=== PATIENT | female | born 1960 | race Caucasian/White ===

== ENCOUNTER 2017-10-23 18:36 | Emergency (ER) | payer SELFPAY ==
[~2017-10-23] VITALS: Ht 154.9 cm; Wt 117.0 kg
[2017-10-23 19:28] VITALS: BP 161/75
--- NOTE | 2017-10-23 19:45 | NUR ---
TO ER BED 3
--- NOTE | 2017-10-23 19:50 | NUR ---
PT IS A 56 Y/O F WHO PRESENTED TO ED S/P FALL FROM SIDEWALK. PT STATES, "THE SIDEWALK WAS UNEVEN AND I FELL." PT C/O PAIN IN L ANKLE, KNEE AND ARM. PT STATES PAIN IS 9/10 ACHING AND THE PAIN IS PROVOKED FROM MOVING. NO OBVIOUS DEFORMITY NOTED. PT DENIES ANY LOSS OF LOC, N/V. PT STATES PMH INCLUDES DM, HTN AND CALCIUM DEPOSITE IN L KNEE. NKA TO MEDICATIONS. PT AAOX4 RR EVEN/UNLABORED. LUNG SOUNDS CLEAR. PT REPOSITIONED FOR COMFORT. BED IN LOWEST POSITION. ER MD DR. DAI MADE AWARE. WILL CONTINUE TO MONITOR
[2017-10-23] MEDS ORDERED: IBUPROFEN 600 MG TAB PO ONE (19:55)
--- NOTE | 2017-10-23 20:30 | NUR ---
PT RESTING COMFORTABLY IN BED WITH NO S/S OF DISTRESS NOTED. VSS. DAUGHTER AT BEDSIDE
[2017-10-23 21:00] VITALS: BP 150/70
--- NOTE | 2017-10-23 21:00 | NUR ---
Patient discharged with v/s stable BY DR. DAI. Written and verbal after care instructions given and explained BY DR. DAI. Patient alert, oriented and verbalized understanding of instructions. Ambulatory with steady gait. All questions addressed prior to discharge BY . ID band removed. Patient advised to follow up with PMD BY DR. DAI. Rx of given NAPTODYN 500 MG. Patient educated on indication of medication including possible reaction and side effects BY DR. DAI. Opportunity to ask questions provided and answered.
== END 2017-10-23 21:00 | disposition home or self-care (01) ==
LOC: MED 19:36
DX: S80.02XA Contusion of left knee, initial encounter (principal); E11.9 Type 2 diabetes mellitus without complications; I10 Essential (primary) hypertension; W19.XXXA Unspecified fall, initial encounter; Y93.89 Activity, other specified; Y92.89 Other specified places as the place of occurrence of the external cause; Y99.8 Other external cause status
CPT/HCPCS: 73562; 99284; Q0092

== ENCOUNTER 2020-08-05 18:38 | Emergency (ER) | payer OTHER ==
[~2020-08-05] VITALS: Ht 162.6 cm; Wt 115.2 kg
[2020-08-05 19:26] VITALS: BP 118/83
[2020-08-05 21:05] VITALS: BP 122/82
--- NOTE | 2020-08-05 21:05 | NUR ---
NOVAL PCR ORAL SWAB COLLECTED AND GIVEN TO SKIN FORMER.
--- NOTE | 2020-08-05 21:05 | NUR ---
Patient discharged with v/s stable. Written and verbal after care instructions given and explained. Patient alert, oriented and verbalized understanding of instructions. Ambulatory with steady gait. All questions addressed prior to discharge. ID band removed. Patient advised to follow up with PMD. Rx of CEPACOL, IBUPROFEN, PROMETAZINE given. Patient educated on indication of medication including possible reaction and side effects. Opportunity to ask questions provided and answered.
--- NOTE | 2020-08-07 09:27 | NUR ---
+ covid result received from lab. Copy given to Tabitha at infection control
== END 2020-08-05 21:05 | disposition home or self-care (01) ==
LOC: MED 18:38
DX: U07.1 COVID-19 (principal); B34.9 Viral infection, unspecified; E11.9 Type 2 diabetes mellitus without complications; I10 Essential (primary) hypertension; I51.89 Other ill-defined heart diseases
CPT/HCPCS: 99283; U0003

== ENCOUNTER 2020-08-14 09:32 | Emergency (ER) | payer OTHER ==
[~2020-08-14] VITALS: Ht 172.7 cm; Wt 99.8 kg
[2020-08-14 09:44] VITALS: BP 149/76
--- NOTE | 2020-08-14 12:09 | NUR ---
59 Y/O FEMALE TESTED + FOR COVID ON 08/04/20. PT IS EXPERIENCING SOB/COUGH AND PRESSURE ON HER CHEST, STATES SHE IS ALSO HAVING N/V. MILD RESP DISTRESS NOTED AT THIS TIME. WHEEZING HEARD IN BILAT LOBES UPON EXHALATION/INSPIRATION. VSS. PMH: HX PNEUMONIA, DM, HTN NKDA
[2020-08-14 13:10] LABS: BASOPHILS # (AUTO) 0.1 K/uL (0.00-0.22); BASOPHILS % (AUTO) 0.6 % (0.0-2.0); EOSINOPHILS # (AUTO) 0.1 K/uL (0-0.4); EOSINOPHILS % (AUTO) 1.3 % (0.0-4.0); HEMATOCRIT 42.3 % (36-48); HEMOGLOBIN 13.9 g/dL (12.0-16.0); LYMPHOCYTES # (AUTO) 1.9 K/uL (2.5-16.5); LYMPHOCYTES % (AUTO) 17.3 % (20.5-51.1); MEAN CORPUSCULAR HEMOGLOBIN 27 pg (27-31); MEAN CORPUSCULAR HGB CONC 33 g/dL (33-37); MONOCYTES % (AUTO) 8.8 % (1.7-9.3); NEUTROPHILS # (AUTO) 7.9 K/uL (1.8-7.7); PLATELET COUNT (AUTO) 392 K/uL (140-450); RED BLOOD CELL COUNT(AUTO) 5.09 MIL/uL (4.20-5.40)
--- NOTE | 2020-08-14 13:21 | NUR ---
LG (DAUGHTER): [phone] FELISHA (SON): [phone]
[2020-08-14 13:25] LABS: ALBUMIN 3.8 g/dL (3.4-5.0); ANION GAP 15.9 (8-16); CARBON DIOXIDE 25.2 mmol/L (21-32); CREATININE 1.1 mg/dL (0.6-1.3); POTASSIUM 4.1 mmol/L (3.5-5.1); TOTAL BILIRUBIN 0.4 mg/dL (0.0-1.0)
[2020-08-14 16:57] VITALS: BP 149/76
--- NOTE | 2020-08-14 16:57 | NUR ---
Patient discharged with v/s stable. Written and verbal after care instructions given and explained. Patient verbalized understanding. Ambulatory with steady gait. All questions addressed prior to discharge. Advised to follow up with PMD.
== END 2020-08-14 16:57 | disposition home or self-care (01) ==
LOC: MED 09:32
DX: U07.1 COVID-19 (principal); J12.89 Other viral pneumonia
CPT/HCPCS: 36415; 71045; 80053; 84484; 85025; 99285

== ENCOUNTER 2021-03-27 12:27 | Emergency (ER) | payer MEDICAID, OTHER ==
[~2021-03-27] VITALS: Ht 165.1 cm; Wt 114.8 kg
[2021-03-27 12:39] VITALS: BP 184/78
[2021-03-27] MEDS ORDERED: ONDANSETRON 4 MG/2 ML VIAL IVP ONE (13:00)
[2021-03-27] MEDS ORDERED: NACL 0.9% 1,000 ML IV SCH (13:00)
[2021-03-27] MEDS ORDERED: KETOROLAC 30 MG/ML VIAL IVP ONE (13:05)
[2021-03-27] MEDS ORDERED: IBUP-2213 PO (13:13)
[2021-03-27] MEDS ORDERED: ONDA8TAB87 PO (13:13)
[2021-03-27] MEDS ORDERED: CIPR500T4 PO (13:13)
[2021-03-27] MEDS ORDERED: LOPE-289 PO (13:13)
[2021-03-27 13:40] LABS: BASOPHILS % (AUTO) 0.3 % (0.0-2.0); EOSINOPHILS % (AUTO) 0.2 % (0.0-4.0); HEMATOCRIT 38.7 % (36-48); HEMOGLOBIN 12.7 g/dL (12.0-16.0); LYMPHOCYTES # (AUTO) 1.1 K/uL (2.5-16.5); LYMPHOCYTES % (AUTO) 7.4 % (20.5-51.1); MEAN CORPUSCULAR HEMOGLOBIN 28 pg (27-31); MEAN CORPUSCULAR HGB CONC 33 g/dL (33-37); MEAN CORPUSCULAR VOLUME 86.3 fL (80-94); MONOCYTES # (AUTO) 0.6 K/uL (0.8-1.0); MONOCYTES % (AUTO) 4.5 % (1.7-9.3); NEUTROPHILS # (AUTO) 12.7 K/uL (1.8-7.7); NEUTROPHILS % (AUTO) 87.6 % (42.2-75.2); PLATELET COUNT (AUTO) 270 K/uL (140-450); RED BLOOD CELL COUNT(AUTO) 4.49 MIL/uL (4.20-5.40); RED CELL DISTRIBUTION WIDTH 15.2 % (11.6-13.7); WHITE BLOOD COUNT (AUTO) 14.5 K/uL (4.8-10.8)
[2021-03-27 13:52] LABS: ALBUMIN 4.2 g/dL (3.4-5.0); ANION GAP 13.5 (8-16); CARBON DIOXIDE 27.8 mmol/L (21-32); CREATININE 1.1 mg/dL (0.6-1.3); POTASSIUM 4.3 mmol/L (3.5-5.1); TOTAL BILIRUBIN 0.6 mg/dL (0.0-1.0)
[2021-03-27 15:07] VITALS: BP 184/78
== END 2021-03-27 15:00 | disposition home or self-care (01) ==
LOC: MED 12:27
DX: R11.2 Nausea with vomiting, unspecified (principal); R19.7 Diarrhea, unspecified; M79.10 Myalgia, unspecified site; E11.9 Type 2 diabetes mellitus without complications; I11.9 Hypertensive heart disease without heart failure; Z79.899 Other long term (current) drug therapy; Z20.822 Contact with and (suspected) exposure to COVID-19
CPT/HCPCS: 36415; 80053; 81002; 83690; 85025; 87426; 96361; 96374; 96375; 99284; J1885; J2405; J7030; 81025